=== PATIENT | male | born 1950 | race Caucasian/White ===

== ENCOUNTER 2017-08-18 05:01 | Inpatient (IN) | payer MEDICARE, MEDICAID ==
[~2017-08-18] VITALS: Ht 177.8 cm; Wt 81.2 kg
[~2017-08-18 05:01] MED LIST: AMLO10TA2 PO; AMLO5TAB2 PO; ASPI-496 PO; ASPI-515 PO; ASPI-650 PO; ATOR20TA PO; ATOR20TA9 PO; BLOOD PRESSURE MED; DIAZ5TAB PO; DIAZ5TAB4 PO; DIGO250T PO; ENOX60SY4 SQ; GABA-826 PO; HYDR-3237 PO; LISI5TAB7 PO; METH750T2 PO; METO25TA35 PO; OMEP-110 PO; POLY17PO5 PO; SENN1TAB7 PO; SIMV20TA3 PO; SUCR1ORA11 PO; TERA1CAP3 PO; TRAM100T2; TRAM50TA2 PO; TRIA10.8 NAS; WARF4TAB; WARF4TAB PO; WARF4TAB7 PO
[2017-08-18] MEDS ORDERED: SODIUM CHLORIDE FLUSH 10ML SYR IVF ONE (05:30)
[2017-08-18 05:58] LABS: ALANINE AMINOTRANSFERASE 25 U/L (12-78); ALBUMIN 3.4 g/dL (3.4-5.0); ANION GAP 8 mmol/L (5-15); CALCIUM 8.3 mg/dL (8.5-10.1); CHLORIDE 109 mmol/L (98-107); CREATININE 1.03 mg/dL (0.7-1.3)
[2017-08-18 06:01] LABS: BASOPHILS # (AUTO) 0.03 x10^3/uL (0-0.1); BASOPHILS % (AUTO) 0 % (0-1); EOSINOPHILS # (AUTO) 0.22 x10^3/uL (0-0.4); EOSINOPHILS % (AUTO) 3 % (1-7); LYMPHOCYTES # (AUTO) 1.93 x10^3/uL (1-3.4); LYMPHOCYTES % (AUTO) 24 % (22-44); MD NO; MEAN CORPUSCULAR HEMOGLOBIN 30.5 pg (27.5-34.5); MEAN CORPUSCULAR HGB CONC 34.6 g/dL (33.2-36.2); MEAN CORPUSCULAR VOLUME 88.2 fL (81-97); MEAN PLATELET VOLUME 9.1 fL (7.4-10.4); MONOCYTES # (AUTO) 0.94 x10^3/uL (0.2-0.8); MONOCYTES % (AUTO) 12 % (2-9); NEUTROPHILS # (AUTO) 5.04 x10^3/uL (1.8-6.8); NEUTROPHILS % (AUTO) 62 % (42-75); PLATELET COUNT 184 x10^3/uL (130-400); RED BLOOD COUNT 5.26 x10^6/uL (4.38-5.82); RED CELL DISTRIBUTION WIDTH 14.2 % (9.4-14.8)
[2017-08-18 06:02] LABS: ALKALINE PHOSPHATASE 90 U/L (45-117); BILIRUBIN,TOTAL 0.4 mg/dL (0.2-1.0); TOTAL PROTEIN 7.1 g/dL (6.4-8.2); TROPONIN I < 0.015 ng/mL (0.000-0.045)
[2017-08-18] MEDS ORDERED: MORPHINE SULFATE 4 MG/ML, 1ML ONE (07:55)
[2017-08-18] MEDS: MORPHINE SULFATE 4 MG/ML, 1ML IVPush PRN ×2 (07:59→08:29)
[2017-08-18 08:34] VITALS: BP 173/93
[2017-08-18] MEDS ORDERED: ACETAMINOPHEN 325 MG TABLET PO PRN (10:30)
[2017-08-18] MEDS ORDERED: BISACODYL 10 MG SUPP PR PRN (10:30)
[2017-08-18] MEDS ORDERED: ENALAPRILAT 1.25 MG/ML, 2ML IVPush PRN (10:30)
[2017-08-18] MEDS ORDERED: ONDANSETRON 2MG/ML, 2ML IVPush PRN (10:30)
[2017-08-18] MEDS ORDERED: morphine SULFATE 10 MG/ML, 1ML IVPush PRN (10:30)
[2017-08-18] MEDS ORDERED: hydrALAzine 20 MG/ML, 1ML IVPush PRN (10:30)
[2017-08-18] MEDS ORDERED: SENNA/DOCUSATE TABLET PO SCH (11:00)
[2017-08-18 11:44] LABS: FREE T4 (FREE THYROXINE) 1.08 ng/dL (0.76-1.46); THYROID STIMULATING HORMONE 2.37 mIU/L (0.358-3.740)
[2017-08-18 12:14] LABS: HEMOGLOBIN A1C 5.8 % (4.2-6.3)
[2017-08-18] MEDS: ENOXAPARIN 40 MG/0.4 ML SQ SCH (12:54)
[2017-08-18] MEDS: AMLODIPINE 5 MG TABLET PO SCH (12:54)
[2017-08-18] MEDS: OXYcodone IR 5MG TABLET PO PRN ×2 (12:54→20:07)
[2017-08-18] MEDS: SENNA/DOCUSATE TABLET PO SCH (12:54)
[2017-08-18 13:10] VITALS: BP 170/108
[2017-08-18 14:07] LABS: TROPONIN I < 0.015 ng/mL (0.000-0.045)
[2017-08-18 18:39] VITALS: BP 147/89
[2017-08-18] MEDS: ATORVASTATIN 20 MG TABLET PO SCH (20:07)
[2017-08-18 20:42] LABS: TROPONIN I < 0.015 ng/mL (0.000-0.045)
[2017-08-19] MEDS: SODIUM CHLORIDE 0.9% 1,000 ML IV SCH ×2 (00:05→09:00)
[2017-08-19 01:18] VITALS: BP 159/83
[2017-08-19 05:23] LABS: BASOPHILS # (AUTO) 0.04 x10^3/uL (0-0.1); BASOPHILS % (AUTO) 0 % (0-1); CHLORIDE 106 mmol/L (98-107); EOSINOPHILS # (AUTO) 0.24 x10^3/uL (0-0.4); EOSINOPHILS % (AUTO) 2 % (1-7); LYMPHOCYTES # (AUTO) 1.92 x10^3/uL (1-3.4); LYMPHOCYTES % (AUTO) 19 % (22-44); MD NO; MEAN CORPUSCULAR HEMOGLOBIN 30.4 pg (27.5-34.5); MEAN CORPUSCULAR HGB CONC 34.4 g/dL (33.2-36.2); MEAN CORPUSCULAR VOLUME 88.6 fL (81-97); MEAN PLATELET VOLUME 9.4 fL (7.4-10.4); MONOCYTES # (AUTO) 0.89 x10^3/uL (0.2-0.8); MONOCYTES % (AUTO) 9 % (2-9); NEUTROPHILS # (AUTO) 6.87 x10^3/uL (1.8-6.8); NEUTROPHILS % (AUTO) 69 % (42-75); PLATELET COUNT 194 x10^3/uL (130-400); RED BLOOD COUNT 5.52 x10^6/uL (4.38-5.82); RED CELL DISTRIBUTION WIDTH 13.8 % (9.4-14.8)
[2017-08-19 05:31] LABS: ALANINE AMINOTRANSFERASE 26 U/L (12-78); ALBUMIN 3.4 g/dL (3.4-5.0); ALKALINE PHOSPHATASE 90 U/L (45-117); ANION GAP 5 mmol/L (5-15); BILIRUBIN,TOTAL 0.6 mg/dL (0.2-1.0); CALCIUM 8.3 mg/dL (8.5-10.1); CHOL/HDL RATIO 4.4; CHOLESTEROL, TOTAL 144 mg/dL (140-239); CREATININE 1.27 mg/dL (0.7-1.3); HDL CHOL % 23 % (26-37); HDL CHOLESTEROL (DIRECT) 33 mg/dL (40-60); LDL CHOLESTEROL,CALCULATED 74 mg/dL (54-169); LDL/HDL RATIO 2.2 (0.5-3.0); TRIGLYCERIDES 186 mg/dL (50-200); VLDL CHOLESTEROL 37 mg/dL (0-25)
[2017-08-19] MEDS: OXYcodone IR 5MG TABLET PO PRN ×2 (06:24→19:52)
[2017-08-19] MEDS ORDERED: REGADENOSON 0.4 MG/5 ML SYRINGE ONE (08:09)
[2017-08-19] MEDS: LISINOPRIL 5 MG TABLET PO SCH (08:42)
[2017-08-19] MEDS: SENNA/DOCUSATE TABLET PO SCH (08:42)
[2017-08-19] MEDS: ASPIRIN 325 MG TABLET EC PO SCH (08:42)
[2017-08-19] MEDS: DIGOXIN 0.25 MG TABLET PO SCH (08:42)
[2017-08-19 08:55] VITALS: BP 150/88
[2017-08-19] MEDS: HYDROcodone/APAP 5/325 TABLET PO PRN ×2 (11:24→17:05)
[2017-08-19] MEDS: ENOXAPARIN 40 MG/0.4 ML SQ SCH (11:25)
[2017-08-19] MEDS: AMLODIPINE 5 MG TABLET PO SCH (11:25)
[2017-08-19] MEDS: POLYETHYLENE GLYCOL 17 GM PACKET PO PRN (13:52)
[2017-08-19 17:16] VITALS: BP 134/79
[2017-08-19 18:45] VITALS: BP 131/73
[2017-08-19] MEDS: ATORVASTATIN 20 MG TABLET PO SCH (19:52)
[2017-08-20] MEDS: HYDROcodone/APAP 5/325 TABLET PO PRN ×4 (00:14→12:10)
[2017-08-20 03:59] VITALS: BP 119/73
[2017-08-20 07:58] VITALS: BP 109/70
[2017-08-20] MEDS: POLYETHYLENE GLYCOL 17 GM PACKET PO PRN (08:21)
[2017-08-20] MEDS: SENNA/DOCUSATE TABLET PO SCH (08:22)
[2017-08-20] MEDS: ASPIRIN 325 MG TABLET EC PO SCH (08:22)
[2017-08-20] MEDS: DIGOXIN 0.25 MG TABLET PO SCH (08:22)
[2017-08-20] MEDS: LISINOPRIL 5 MG TABLET PO SCH (08:22)
[2017-08-20] MEDS: ENOXAPARIN 40 MG/0.4 ML SQ SCH (10:30)
[2017-08-20] MEDS ORDERED: SENN1TAB7 PO (10:37)
[2017-08-20] MEDS ORDERED: POLY17PO5 PO (10:37)
[2017-08-20] MEDS ORDERED: ACET-1600 PO (10:37)
[2017-08-20 14:09] VITALS: BP 114/76
== END 2017-08-20 15:49 | disposition home or self-care (01) | DRG 206 ==
LOC: ED 06:48 → OBSVTOIN 06:49 → EDIP 06:49 → ED 07:23 → 5SO 08:19
PROVIDERS: ADMIT Hospitalist; ATTEND Hospitalist
DX: M94.0 Chondrocostal junction syndrome [Tietze] (principal); D68.69 Other thrombophilia; I48.92 Unspecified atrial flutter; I48.0 Paroxysmal atrial fibrillation; I50.20 Unspecified systolic (congestive) heart failure; I11.0 Hypertensive heart disease with heart failure; W19.XXXA Unspecified fall, initial encounter; E78.00 Pure hypercholesterolemia, unspecified; E78.5 Hyperlipidemia, unspecified; K21.9 Gastro-esophageal reflux disease without esophagitis; H26.9 Unspecified cataract; N40.0 Benign prostatic hyperplasia without lower urinary tract symptoms; I25.10 Atherosclerotic heart disease of native coronary artery without angina pectoris; S20.212A Contusion of left front wall of thorax, initial encounter; Z79.82 Long term (current) use of aspirin; Z87.891 Personal history of nicotine dependence; I25.2 Old myocardial infarction; Z86.73 Personal history of transient ischemic attack (TIA), and cerebral infarction without residual deficits; Y93.89 Activity, other specified; Y92.89 Other specified places as the place of occurrence of the external cause; Y99.8 Other external cause status; Z88.5 Allergy status to narcotic agent
CPT/HCPCS: 36415; 78452; 80053; 80061; 80162; 83036; 83735; 84439; 84443; 84484; 85025; 93005; 93017; 93306; 99285; J1650; J2785; A9502; C9898; G0378; J7030

== ENCOUNTER 2017-12-13 08:24 | Emergency (ER) | payer MEDICARE, MEDICAID ==
[~2017-12-13] VITALS: Ht 180.3 cm; Wt 84.0 kg
[~2017-12-13 08:24] MED LIST changes: +ACET-1600 PO; -TRAM100T2; +TRAM100T33; +WARF4TAB65 PO; -WARF4TAB7 PO
[2017-12-13] MEDS ORDERED: CETI1TAB78 PO (08:45)
[2017-12-13] MEDS ORDERED: ASPI325T17 PO (08:45)
[2017-12-13] MEDS ORDERED: KETOROLAC 30 MG/1 ML ONE (08:50)
[2017-12-13] MEDS ORDERED: DIAZEPAM 5 MG TABLET ONE (08:50)
[2017-12-13] MEDS ORDERED: DIAZEPAM 5 MG TABLET PO ONE (09:00)
[2017-12-13] MEDS ORDERED: KETOROLAC 30 MG/1 ML IM ONE (09:00)
[2017-12-13 10:00] VITALS: BP 156/87
== END 2017-12-13 11:02 | disposition home or self-care (01) ==
LOC: ED 08:52
DX: S29.012A Strain of muscle and tendon of back wall of thorax, initial encounter (principal); I10 Essential (primary) hypertension; E78.00 Pure hypercholesterolemia, unspecified; Z86.73 Personal history of transient ischemic attack (TIA), and cerebral infarction without residual deficits; E78.5 Hyperlipidemia, unspecified; I48.91 Unspecified atrial fibrillation; K21.9 Gastro-esophageal reflux disease without esophagitis; W01.0XXA Fall on same level from slipping, tripping and stumbling without subsequent striking against object, initial encounter; Y93.89 Activity, other specified; Y99.9 Unspecified external cause status; Y92.009 Unspecified place in unspecified non-institutional (private) residence as the place of occurrence of the external cause
CPT/HCPCS: 72072; 96372; 99284; J1885

== ENCOUNTER 2019-07-17 14:45 | Emergency (ER) | payer MEDICARE, MEDICAID ==
[~2019-07-17] VITALS: Ht 180.3 cm; Wt 84.0 kg
[~2019-07-17 14:45] MED LIST changes: +AMLO-150 PO; -AMLO10TA2 PO; +AMLO10TA8 PO; -AMLO5TAB2 PO; +APIX5TAB PO; +ASPI325T17 PO; +ASPI81TA45 PO; +ATOR20TA37 PO; -ATOR20TA9 PO; +CEFD300C37 PO; +CETI1TAB78 PO; +DEXT1DRO7 EACHEYE; +ERGO500017 PO; +HYDR-3240 PO; +MECL25TA4 PO; +NAPR-685 PO; +SENN-177 PO; -SENN1TAB7 PO
--- NOTE | 2019-07-17 14:59 | NUR ---
PT CAME IN CO OF PAIN IN BACK. RIGHT SIDE UNDERNEART SCAPULA. PT ALSO CO OF COUGH THAT HAS BEEN PRODUCTIVE FOR 4 WEEKS.
[2019-07-17] MEDS ORDERED: KETOROLAC 30 MG/1 ML IM ONE (15:30)
[2019-07-17] MEDS ORDERED: KETOROLAC 30 MG/1 ML ONE (16:11)
--- NOTE | 2019-07-17 16:28 | NUR ---
PT REPORTS IMPROVEMENT FROM A 01/26 TO 10/26
[2019-07-17 16:58] VITALS: BP 144/84
== END 2019-07-17 18:25 | disposition home or self-care (01) ==
LOC: ED 16:30
DX: M54.6 Pain in thoracic spine (principal); R25.2 Cramp and spasm; I10 Essential (primary) hypertension; I48.91 Unspecified atrial fibrillation; E78.00 Pure hypercholesterolemia, unspecified; K21.9 Gastro-esophageal reflux disease without esophagitis; Z86.73 Personal history of transient ischemic attack (TIA), and cerebral infarction without residual deficits; Z88.5 Allergy status to narcotic agent
CPT/HCPCS: 71101; 93005; 96372; 99283; J1885